=== PATIENT | female | born 1965 | race Caucasian/White ===

== ENCOUNTER 2018-05-10 19:05 | Inpatient (IN) | payer MEDICAID, OTHER ==
[~2018-05-10] VITALS: Ht 162.6 cm; Wt 73.5 kg
--- NOTE | 2018-05-10 20:45 | NUR ---
DR. DAWN AT BEDSIDE FOR MSE.
[2018-05-10] MEDS ORDERED: predniSONE 20 MG TABLET ONE (20:56)
[2018-05-10] MEDS ORDERED: ALBUTEROL SULFATE 2.5 MG/3 ML NEBU ONE (21:00)
[2018-05-10] MEDS ORDERED: IPRATROPIUM BROMIDE 0.5 MG/2.5 ML NEBU NEB ONE (21:00)
[2018-05-10] MEDS ORDERED: predniSONE 20 MG TABLET PO ONE (21:00)
[2018-05-10] MEDS ORDERED: IPRATROPIUM BROMIDE 0.5 MG/2.5 ML NEBU ONE (21:00)
[2018-05-10] MEDS ORDERED: ALBUTEROL SULFATE 2.5 MG/3 ML NEBU NEB ONE (21:00)
[2018-05-10] MEDS ORDERED: AZITHROMYCIN 250 MG TABLET PO ONE (21:45)
[2018-05-10] MEDS ORDERED: AZITHROMYCIN 250 MG TABLET ONE (21:52)
[2018-05-10] MEDS ORDERED: IV NORMAL SALINE 1000 ML BAG IV ONE (23:00)
[2018-05-10] MEDS ORDERED: CEFTRIAXONE 1 G in IV DEXTROSE 5% 50 ML IV ONE (23:00)
[2018-05-10] MEDS ORDERED: CEFTRIAXONE 1 G VIAL ONE (23:07)
[2018-05-10 23:13] LABS: BASOPHILS % (AUTO) 0.1 % (0.0-2.0); CREATININE 0.7 mg/dL (0.6-1.3); HEMATOCRIT 37.6 % (31.2-41.9); HEMOGLOBIN 12.6 g/dL (10.9-14.3); LYMPHOCYTES % (AUTO) 11.6 % (20.5-51.5); MEAN CORPUSCULAR HEMOGLOBIN 27.9 uug (24.7-32.8); MEAN CORPUSCULAR HGB CONC 33 g/dL (32.3-35.6); MEAN CORPUSCULAR VOLUME 83.4 fL (75.5-95.3); MONOCYTES # (AUTO) 0.4 K/uL (2.0-10.0); MONOCYTES % (AUTO) 4.1 % (0.0-11.0); NEUTROPHILS # (AUTO) 7.3 K/uL (1.8-8.9); NEUTROPHILS % (AUTO) 84.2 % (38.5-71.5); PLATELET COUNT (AUTO) 148 K/uL (179-408); POTASSIUM 3.6 mmol/L (3.5-5.1); RED BLOOD CELL COUNT(AUTO) 4.51 MIL/uL (3.63-4.92); WHITE BLOOD COUNT (AUTO) 8.7 K/uL (3.8-11.8)
[2018-05-10] MEDS ORDERED: MAGNESIUM HYDROXIDE 30 ML LIQUID UDC PO PRN (23:15)
[2018-05-10] MEDS ORDERED: TEMAZEPAM 15 MG CAPSULE PO PRN (23:15)
[2018-05-10] MEDS ORDERED: Z GUARD REMEDY PASTE 57 GM TUBE TOP PRN (23:15)
[2018-05-10] MEDS ORDERED: ACETAMINOPHEN 325 MG TABLET PO PRN (23:15)
[2018-05-10] MEDS ORDERED: ONDANSETRON 4 MG/2 ML VIAL IV PRN (23:15)
[2018-05-10] MEDS ORDERED: IPRATROPIUM BROMIDE 0.5 MG/2.5 ML NEBU NEB PRN (23:15)
--- NOTE | 2018-05-10 23:37 | NUR ---
Pt. admitted to [facility] , under care of RAFAL Finney Belongs List completed.
--- NOTE | 2018-05-10 23:37 | NUR ---
REPORT GIVEN TO STUART FLYNN.
[2018-05-11 00:15] VITALS: BP 107/64
--- NOTE | 2018-05-11 00:15 | NUR ---
Received patient awake, alert and oriented x 4, not in any form of distress. Patient with oxygen support at 2lpm via nasal cannula, saturating at 97%. Patient has an IV access at left antecubital vein, 20g to saline lock. Patient oriented to unit and use of call light. Bedbath rendered. Ensured safety and comfort. Bed in low position, locked, side rails up x 2, call light within reach. Will continue to monitor.
[2018-05-11] MEDS: IV NS 1000 ML 1,000 ML IV PRN ×2 (00:59→15:16)
[2018-05-11] MEDS: NICOTINE 14 MG/24HR PATCH TD SCH ×2 (00:59→08:02)
[2018-05-11 03:13] VITALS: BP 95/56
[2018-05-11 06:40] LABS: BASOPHILS % (AUTO) 0.1 % (0.0-2.0); HEMATOCRIT 34.7 % (31.2-41.9); HEMOGLOBIN 11.6 g/dL (10.9-14.3); LYMPHOCYTES # (AUTO) 0.8 K/uL (20.0-40.0); LYMPHOCYTES % (AUTO) 10.6 % (20.5-51.5); MEAN CORPUSCULAR HEMOGLOBIN 28.2 uug (24.7-32.8); MEAN CORPUSCULAR HGB CONC 34 g/dL (32.3-35.6); MEAN CORPUSCULAR VOLUME 83.9 fL (75.5-95.3); MONOCYTES # (AUTO) 0.2 K/uL (2.0-10.0); MONOCYTES % (AUTO) 3.1 % (0.0-11.0); NEUTROPHILS # (AUTO) 6.2 K/uL (1.8-8.9); NEUTROPHILS % (AUTO) 86.2 % (38.5-71.5); PLATELET COUNT (AUTO) 154 K/uL (179-408); RED BLOOD CELL COUNT(AUTO) 4.13 MIL/uL (3.63-4.92); WHITE BLOOD COUNT (AUTO) 7.2 K/uL (3.8-11.8)
[2018-05-11] MEDS: PANTOPRAZOLE SODIUM 40 MG VIAL IV SCH (06:44)
--- NOTE | 2018-05-11 06:47 | NUR ---
Patient slept well, alert and oriented x 4, not in any form of distress. Patient with oxygen support at 2lpm via nasal cannula, saturating at 97%. Patient has an IV access at left antecubital vein, 20g to ongoing IV fluid, infusing well. Still for urine collection, patient instructed, hat placed in the toilet. Ensured safety and comfort. No complaints made.
[2018-05-11 06:58] LABS: BILIRUBIN,TOTAL 0.5 mg/dL (0.2-1.0); MAGNESIUM 2.1 mg/dL (1.8-2.4); PHOSPHOROUS 4.8 mg/dL (2.5-4.9); POTASSIUM 4.3 mmol/L (3.5-5.1); TOTAL PROTEIN, SERUM 6.9 g/dL (6.4-8.2)
[2018-05-11 07:02] LABS: THYROID STIMULATING HORMONE 0.314 mIU/mL (0.358-3.740)
[2018-05-11 07:05] LABS: CREATININE 0.7 mg/dL (0.6-1.3)
[2018-05-11] MEDS ORDERED: DEXTROSE 50% 50 ML DISP.SYRIN IV PRN ×3 (07:45→22:00)
[2018-05-11] MEDS: methylPREDNISolone SOD SUCC 40 MG/ML VIAL IV SCH ×2 (08:20→16:36)
[2018-05-11] MEDS: BLOOD SUGAR DIAGNOSTIC 1 EACH STRIP VI SCH ×3 (10:43→20:20)
[2018-05-11] MEDS: IPRATROPIUM BROMIDE 0.5 MG/2.5 ML NEBU NEB SCH ×3 (10:52→19:26)
[2018-05-11] MEDS: ALBUTEROL SULFATE 2.5 MG/ 0.5 ML NEBU NEB PRN ×2 (10:52→10:53)
[2018-05-11] MEDS: INSULIN REGULAR, HUMAN 300 UNIT/3 ML VIAL SQ PRN ×3 (11:00→21:29)
[2018-05-11] MEDS: ENOXAPARIN SODIUM 40 MG/0.4 ML DISP.SYRIN SQ SCH (11:26)
[2018-05-11] MEDS: ALBUTEROL SULFATE 2.5 MG/3 ML NEBU NEB SCH ×3 (11:30→19:26)
[2018-05-11 11:33] VITALS: BP 112/66
[2018-05-11] MEDS ORDERED: INSULIN REGULAR, HUMAN 300 UNIT/3 ML VIAL SQ PRN (11:45)
[2018-05-11 13:25] LABS: *BILIRUBIN,URIN NEGATIVE (NEGATIVE); *BLOOD, URINE 3+ (NEGATIVE); *CLARITY,URINE SLIGHTLY CLOUDY (CLEAR); *COLOR,URINE PINK (YELLOW); *KETONES,URINE 1+ (NEGATIVE); LEUKOCYTE ESTERASE ,URINE NEGATIVE (NEGATIVE); NITRITE, URINE NEGATIVE (NEGATIVE); UGLUCOSE 2+ (NEGATIVE)
[2018-05-11 13:55] LABS: BACTERIA,URINE FEW /HPF (NONE SEEN); RBC,URINE 80-100 /HPF (0-3); SQUAMOUS EPITHELIAL CELL,UR FEW /HPF (NONE SEEN)
[2018-05-11 16:20] VITALS: BP 105/59
[2018-05-11] MEDS: GUAIFENESIN SUGAR FREE 100 MG/5 ML UDC PO PRN (16:20)
[2018-05-11] MEDS ORDERED: BLOOD SUGAR DIAGNOSTIC 1 EACH STRIP VI SCH (16:30)
[2018-05-11 18:18] LABS: BASOPHILS % (AUTO) 0.3 % (0.0-2.0); HEMOGLOBIN 11.5 g/dL (10.9-14.3); LYMPHOCYTES # (AUTO) 0.9 K/uL (20.0-40.0); LYMPHOCYTES % (AUTO) 11.6 % (20.5-51.5); MEAN CORPUSCULAR HEMOGLOBIN 27.8 uug (24.7-32.8); MEAN CORPUSCULAR HGB CONC 33 g/dL (32.3-35.6); MEAN CORPUSCULAR VOLUME 84.5 fL (75.5-95.3); MONOCYTES # (AUTO) 0.3 K/uL (2.0-10.0); MONOCYTES % (AUTO) 4.3 % (0.0-11.0); NEUTROPHILS # (AUTO) 6.7 K/uL (1.8-8.9); NEUTROPHILS % (AUTO) 83.8 % (38.5-71.5); PLATELET COUNT (AUTO) 167 K/uL (179-408); RED BLOOD CELL COUNT(AUTO) 4.14 MIL/uL (3.63-4.92)
[2018-05-11 19:16] VITALS: BP 109/67
[2018-05-11] MEDS: AZITHROMYCIN 250 MG TABLET PO SCH (20:17)
--- NOTE | 2018-05-11 20:22 | NUR ---
nsg: pt acu check is 427mg/Dl. refused insulin. refused to be rechecked again. wants recheck in 1 hr.
[2018-05-11] MEDS: CEFEPIME HCL 1 G in IV DEXTROSE 5% 50 ML IV SCH (20:55)
[2018-05-11] MEDS ORDERED: CEFTRIAXONE 1 G in IV DEXTROSE 5% 50 ML IV SCH (21:00)
--- NOTE | 2018-05-11 21:30 | NUR ---
NSG: rechecked glucose, 429mg/DL. gave humalog insulin 10 units. ordered random glucose level. also l/m with Dr. Aguilar. awaiting for further orders.
[2018-05-11] MEDS ORDERED: IV NORMAL SALINE 500 ML IV ONE (22:00)
--- NOTE | 2018-05-11 22:00 | NUR ---
nsg: random glucose level is 443. received order from Dr. Aguilar for ns 500ml bolus and changed insulin sliding scale to moderate.
[2018-05-12] MEDS: IV NS 1000 ML 1,000 ML IV PRN ×2 (00:40→16:33)
[2018-05-12 03:19] VITALS: BP 110/70
--- NOTE | 2018-05-12 05:28 | NUR ---
nsg: all needs attended. no acute distress noted. v/s stable. cont to monitor.
[2018-05-12] MEDS: PANTOPRAZOLE SODIUM 40 MG VIAL IV SCH (06:36)
[2018-05-12] MEDS: BLOOD SUGAR DIAGNOSTIC 1 EACH STRIP VI SCH ×5 (06:37→21:25)
--- NOTE | 2018-05-12 06:37 | NUR ---
nsg: pt refused acu check. upset about getting checked achs. also, pt very angry, stating she's not diabetic. pt refused to be educated concerning her diabetes.
[2018-05-12 06:51] LABS: BASOPHILS % (AUTO) 0.1 % (0.0-2.0); HEMATOCRIT 32.5 % (31.2-41.9); HEMOGLOBIN 10.8 g/dL (10.9-14.3); LYMPHOCYTES # (AUTO) 1.7 K/uL (20.0-40.0); LYMPHOCYTES % (AUTO) 15.9 % (20.5-51.5); MEAN CORPUSCULAR HEMOGLOBIN 27.9 uug (24.7-32.8); MEAN CORPUSCULAR HGB CONC 33 g/dL (32.3-35.6); MEAN CORPUSCULAR VOLUME 84.2 fL (75.5-95.3); MONOCYTES # (AUTO) 0.9 K/uL (2.0-10.0); MONOCYTES % (AUTO) 8.5 % (0.0-11.0); NEUTROPHILS # (AUTO) 7.9 K/uL (1.8-8.9); NEUTROPHILS % (AUTO) 75.5 % (38.5-71.5); PLATELET COUNT (AUTO) 203 K/uL (179-408); RED BLOOD CELL COUNT(AUTO) 3.86 MIL/uL (3.63-4.92); WHITE BLOOD COUNT (AUTO) 10.4 K/uL (3.8-11.8)
[2018-05-12 06:57] LABS: CREATININE 0.7 mg/dL (0.6-1.3); POTASSIUM 4.3 mmol/L (3.5-5.1)
[2018-05-12 07:21] LABS: BAND % (MANUAL) 4 % (0-10); LYMPHOCYTES % (MANUAL) 19 % (20-40); MONOCYTES % (MANUAL) 3 % (2-10); NEUTROPHILS % (MANUAL) 73 % (42-75)
[2018-05-12] MEDS: IPRATROPIUM BROMIDE 0.5 MG/2.5 ML NEBU NEB SCH ×4 (07:30→19:49)
[2018-05-12] MEDS: ALBUTEROL SULFATE 2.5 MG/3 ML NEBU NEB SCH ×4 (07:30→19:49)
[2018-05-12] MEDS: INSULIN REGULAR, HUMAN 300 UNIT/3 ML VIAL SQ PRN ×3 (08:53→17:10)
[2018-05-12] MEDS: methylPREDNISolone SOD SUCC 40 MG/ML VIAL IV SCH ×2 (08:56→17:04)
[2018-05-12 09:51] LABS: ABG BASE EXCESS 1.5 mmol/L; ABG HCO3 26.3 mmol/L; ABG PCO2 42.3 mmHg (35.0-45.0); ABG PH 7.412 (7.350-7.450); ABG PO2 65.4 mmHg (75.0-100.0); ABG SITE RIGHT RADIAL; ABG TOTAL HEMOGLOBIN 11.5 G/dL (12.0-16.0); COHb 1.2 % (0.5-1.5); O2Hb 91.5 % (94.0-97.0); VENT MODE ROOM AIR
[2018-05-12] MEDS: NICOTINE 14 MG/24HR PATCH TD SCH (09:57)
[2018-05-12] MEDS: CEFEPIME HCL 1 G in IV DEXTROSE 5% 50 ML IV SCH ×2 (09:57→21:11)
[2018-05-12] MEDS: ENOXAPARIN SODIUM 40 MG/0.4 ML DISP.SYRIN SQ SCH (10:04)
[2018-05-12 11:20] VITALS: BP 109/52
[2018-05-12] MEDS: HYDROMORPHONE 1 MG/1 ML DISP.SYRIN IV PRN ×3 (13:03→21:11)
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
[2018-05-12 15:10] VITALS: BP 107/65
[2018-05-12] MEDS: GUAIFENESIN SUGAR FREE 100 MG/5 ML UDC PO PRN (17:04)
[2018-05-12] MEDS ORDERED: CLONIDINE TTS 2 PATCH TD SCH (18:30)
[2018-05-12] MEDS: AZITHROMYCIN 250 MG TABLET PO SCH (19:35)
[2018-05-12 20:00] VITALS: BP 111/63
[2018-05-12] MEDS: CULTURELLE CAPSULE PO SCH (21:11)
[2018-05-13] MEDS: HYDROMORPHONE 1 MG/1 ML DISP.SYRIN IV PRN ×4 (00:59→18:10)
[2018-05-13] MEDS: IV NS 1000 ML 1,000 ML IV PRN ×3 (01:09→23:56)
[2018-05-13 04:00] VITALS: BP 126/80
--- NOTE | 2018-05-13 06:00 | NUR ---
No significant change, assisted with all needs. Medicated for pain PRN. Vital signs WNL.
[2018-05-13 06:08] LABS: BASOPHILS % (AUTO) 0.1 % (0.0-2.0); HEMATOCRIT 32.3 % (31.2-41.9); HEMOGLOBIN 10.7 g/dL (10.9-14.3); LYMPHOCYTES # (AUTO) 1.7 K/uL (20.0-40.0); LYMPHOCYTES % (AUTO) 20.8 % (20.5-51.5); MEAN CORPUSCULAR HEMOGLOBIN 28.1 uug (24.7-32.8); MEAN CORPUSCULAR HGB CONC 33 g/dL (32.3-35.6); MEAN CORPUSCULAR VOLUME 84.5 fL (75.5-95.3); MONOCYTES # (AUTO) 0.4 K/uL (2.0-10.0); MONOCYTES % (AUTO) 4.2 % (0.0-11.0); NEUTROPHILS # (AUTO) 6.2 K/uL (1.8-8.9); NEUTROPHILS % (AUTO) 74.9 % (38.5-71.5); PLATELET COUNT (AUTO) 271 K/uL (179-408); RED BLOOD CELL COUNT(AUTO) 3.82 MIL/uL (3.63-4.92); WHITE BLOOD COUNT (AUTO) 8.3 K/uL (3.8-11.8)
[2018-05-13] MEDS: PANTOPRAZOLE SODIUM 40 MG TABLET.DR PO SCH (06:41)
[2018-05-13] MEDS: BLOOD SUGAR DIAGNOSTIC 1 EACH STRIP VI SCH ×4 (06:42→20:16)
[2018-05-13] MEDS: IPRATROPIUM BROMIDE 0.5 MG/2.5 ML NEBU NEB SCH ×4 (07:38→19:04)
[2018-05-13] MEDS: ALBUTEROL SULFATE 2.5 MG/3 ML NEBU NEB SCH ×4 (07:39→19:05)
[2018-05-13] MEDS: methylPREDNISolone SOD SUCC 40 MG/ML VIAL IV SCH ×2 (08:21→17:42)
[2018-05-13] MEDS: NICOTINE 14 MG/24HR PATCH TD SCH (08:22)
[2018-05-13] MEDS: CULTURELLE CAPSULE PO SCH ×2 (08:23→20:12)
[2018-05-13] MEDS: INSULIN REGULAR, HUMAN 300 UNIT/3 ML VIAL SQ PRN ×4 (08:25→20:17)
[2018-05-13] MEDS: ENOXAPARIN SODIUM 40 MG/0.4 ML DISP.SYRIN SQ SCH (08:26)
[2018-05-13] MEDS: CEFEPIME HCL 1 G in IV DEXTROSE 5% 50 ML IV SCH ×2 (08:39→20:12)
[2018-05-13 09:25] LABS: CREATININE 0.8 mg/dL (0.6-1.3); POTASSIUM 4.2 mmol/L (3.5-5.1)
[2018-05-13 11:10] VITALS: BP 105/69
[2018-05-13] MEDS: GUAIFENESIN SUGAR FREE 100 MG/5 ML UDC PO PRN (13:40)
[2018-05-13 15:01] LABS: *AMPHETAMINE, URINE NEGATIVE (NEGATIVE); *BARBITURATE, URINE NEGATIVE (NEGATIVE); *CANNABINOID, URINE POSITIVE (NEGATIVE); *COCCAINE, URINE NEGATIVE (NEGATIVE); *OPIATE, URINE POSITIVE (NEGATIVE); *PHENCYCLIDINE SCREEN,URINE NEGATIVE (NEGATIVE)
[2018-05-13 15:20] VITALS: BP 144/89
[2018-05-13] MEDS: AZITHROMYCIN 250 MG TABLET PO SCH (18:10)
--- NOTE | 2018-05-13 19:47 | NUR ---
Received patient awake, not in any form of distress. Patient with oxygen support at 2lpm via nasal cannula, saturating at 97%. Patient has an IV access at left hand vein, 22g to ongoing IV fluid, infusing well. Bed in low position, rhona, side rails up x 2, call light within reach.Noise and lights subdued.
[2018-05-13 19:56] VITALS: BP 128/82
[2018-05-14] MEDS: HYDROMORPHONE 1 MG/1 ML DISP.SYRIN IV PRN ×2 (00:12→19:45)
[2018-05-14 04:37] VITALS: BP 133/70
--- NOTE | 2018-05-14 05:39 | NUR ---
Patient slept well, not in any form of distress. Patient ambulatory. Patient with oxygen support at 2lpm via nasal cannula, saturating at 97-98%. Patient has an IV access at left hand vein, 22g to ongoing IV fluid, infusing well. Ensured safety and comfort. With pain complaints, prn pain medication given.
[2018-05-14] MEDS: BLOOD SUGAR DIAGNOSTIC 1 EACH STRIP VI SCH ×4 (06:31→21:08)
[2018-05-14] MEDS: PANTOPRAZOLE SODIUM 40 MG TABLET.DR PO SCH (06:31)
[2018-05-14] MEDS: IPRATROPIUM BROMIDE 0.5 MG/2.5 ML NEBU NEB SCH ×4 (07:10→19:54)
[2018-05-14] MEDS: ALBUTEROL SULFATE 2.5 MG/3 ML NEBU NEB SCH ×4 (07:10→19:53)
[2018-05-14 07:56] LABS: BASOPHILS # (AUTO) 0.1 K/uL (0.0-8.0); BASOPHILS % (AUTO) 0.7 % (0.0-2.0); EOSINOPHILS % (AUTO) 0.2 % (0.0-7.0); HEMATOCRIT 31.6 % (31.2-41.9); HEMOGLOBIN 10.6 g/dL (10.9-14.3); LYMPHOCYTES % (AUTO) 24.6 % (20.5-51.5); MEAN CORPUSCULAR HGB CONC 34 g/dL (32.3-35.6); MEAN CORPUSCULAR VOLUME 83.7 fL (75.5-95.3); MONOCYTES # (AUTO) 0.5 K/uL (2.0-10.0); MONOCYTES % (AUTO) 6.3 % (0.0-11.0); NEUTROPHILS # (AUTO) 5.4 K/uL (1.8-8.9); NEUTROPHILS % (AUTO) 68.2 % (38.5-71.5); PLATELET COUNT (AUTO) 312 K/uL (179-408); RED BLOOD CELL COUNT(AUTO) 3.78 MIL/uL (3.63-4.92)
[2018-05-14 08:07] LABS: CREATININE 0.6 mg/dL (0.6-1.3)
[2018-05-14 08:24] LABS: BAND % (MANUAL) 9 % (0-10); LYMPHOCYTES % (MANUAL) 25 % (20-40); METAMYELOCYTES % 3 % (0-1); MONOCYTES % (MANUAL) 7 % (2-10); MYELOCYTES % 3 % (0-0); NEUTROPHILS % (MANUAL) 53 % (42-75)
[2018-05-14] MEDS: CEFEPIME HCL 1 G in IV DEXTROSE 5% 50 ML IV SCH ×2 (08:58→21:13)
[2018-05-14] MEDS: methylPREDNISolone SOD SUCC 40 MG/ML VIAL IV SCH ×2 (08:58→17:26)
[2018-05-14] MEDS: NICOTINE 14 MG/24HR PATCH TD SCH (09:00)
[2018-05-14] MEDS: CULTURELLE CAPSULE PO SCH ×2 (09:01→21:08)
[2018-05-14] MEDS: HYDROCODONE/APAP 5-325MG TABLET PO PRN ×2 (09:01→14:54)
[2018-05-14] MEDS: ENOXAPARIN SODIUM 40 MG/0.4 ML DISP.SYRIN SQ SCH (09:02)
[2018-05-14] MEDS: INSULIN REGULAR, HUMAN 300 UNIT/3 ML VIAL SQ PRN ×3 (10:31→16:47)
[2018-05-14 11:21] VITALS: BP 147/83
[2018-05-14 14:18] LABS: *BILIRUBIN,URIN NEGATIVE (NEGATIVE); *BLOOD, URINE 3+ (NEGATIVE); *CLARITY,URINE SLIGHTLY CLOUDY (CLEAR); *COLOR,URINE DARK YELLOW (YELLOW); *KETONES,URINE TRACE (NEGATIVE); *UROBILINOGEN,URINE 0.2 E.U./dl (NORMAL); LEUKOCYTE ESTERASE ,URINE NEGATIVE (NEGATIVE); NITRITE, URINE NEGATIVE (NEGATIVE); UGLUCOSE 2+ (NEGATIVE)
[2018-05-14 14:30] LABS: RBC,URINE 50-80 /HPF (0-3)
[2018-05-14 14:31] LABS: MUCUS,URINE FEW /LPF (0-FEW); SQUAMOUS EPITHELIAL CELL,UR FEW /HPF (NONE SEEN)
[2018-05-14 14:32] LABS: BACTERIA,URINE NONE SEEN /HPF (NONE SEEN)
[2018-05-14 16:00] VITALS: BP 150/91
[2018-05-14] MEDS: AZITHROMYCIN 250 MG TABLET PO SCH (18:38)
--- NOTE | 2018-05-14 19:25 | NUR ---
Received patient awake, not in any form of distress. Patient with oxygen support at 2lpm via nasal cannula, saturating at 96-98%. Patient has an IV access at left hand vein, 22g to ongoing IV fluid, infusing well. Complaining of generalized pain, will give prn pain medication. Bed in low position, locked, side rails up x 2, call light within reach. Noise and lights subdued.
[2018-05-14 20:05] VITALS: BP 146/81
[2018-05-14] MEDS: INSULIN REGULAR, HUMAN 300 UNITS/3 ML VIAL SQ PRN (21:11)
[2018-05-14] MEDS: IV NS 1000 ML 1,000 ML IV PRN (21:16)
[2018-05-14] MEDS: GUAIFENESIN SUGAR FREE 100 MG/5 ML UDC PO PRN (23:32)
[2018-05-15 04:45] VITALS: BP 139/80
--- NOTE | 2018-05-15 05:50 | NUR ---
Patient slept well, no distress noted. Patient ambulatory. Patient tolerating oxygen support at 2lpm via nasal cannula. Patient has an IV access at left hand vein, 22g to ongoing IV fluid, infusing well. Ensured safety and comfort. With pain complaints, prn pain medication given.Attended all needs.
[2018-05-15] MEDS: PANTOPRAZOLE SODIUM 40 MG TABLET.DR PO SCH (06:13)
[2018-05-15] MEDS: IV NS 1000 ML 1,000 ML IV PRN ×2 (06:14→16:42)
[2018-05-15] MEDS: HYDROCODONE/APAP 5-325MG TABLET PO PRN ×3 (06:19→16:29)
[2018-05-15] MEDS: BLOOD SUGAR DIAGNOSTIC 1 EACH STRIP VI SCH ×4 (06:42→20:12)
[2018-05-15 06:44] LABS: BASOPHILS # (AUTO) 0.1 K/uL (0.0-8.0); BASOPHILS % (AUTO) 0.6 % (0.0-2.0); EOSINOPHILS % (AUTO) 0.2 % (0.0-7.0); HEMATOCRIT 33.4 % (31.2-41.9); LYMPHOCYTES # (AUTO) 2.4 K/uL (20.0-40.0); LYMPHOCYTES % (AUTO) 22.1 % (20.5-51.5); MEAN CORPUSCULAR HEMOGLOBIN 27.8 uug (24.7-32.8); MEAN CORPUSCULAR HGB CONC 33 g/dL (32.3-35.6); MEAN CORPUSCULAR VOLUME 84.3 fL (75.5-95.3); MONOCYTES # (AUTO) 0.6 K/uL (2.0-10.0); MONOCYTES % (AUTO) 5.9 % (0.0-11.0); NEUTROPHILS # (AUTO) 7.6 K/uL (1.8-8.9); NEUTROPHILS % (AUTO) 71.2 % (38.5-71.5); PLATELET COUNT (AUTO) 344 K/uL (179-408); RED BLOOD CELL COUNT(AUTO) 3.96 MIL/uL (3.63-4.92)
[2018-05-15 06:52] LABS: CREATININE 0.6 mg/dL (0.6-1.3); POTASSIUM 3.9 mmol/L (3.5-5.1)
[2018-05-15] MEDS: ALBUTEROL SULFATE 2.5 MG/3 ML NEBU NEB SCH ×4 (07:12→19:26)
[2018-05-15] MEDS: IPRATROPIUM BROMIDE 0.5 MG/2.5 ML NEBU NEB SCH ×4 (07:13→19:26)
[2018-05-15 07:27] LABS: WHITE BLOOD COUNT (AUTO) 10.7 K/uL (3.8-11.8)
--- NOTE | 2018-05-15 08:00 | NUR ---
Received patient awake, alert and oriented. Patient on oxygen support at 2L nasal cannula. No signs of acute distress at this time. IV access patent. Safety and comfort measures implemented. Bed on lowest and locked position with side rails up x2. Call light within reach. Will continue to monitor throughout shift.
[2018-05-15] MEDS: methylPREDNISolone SOD SUCC 40 MG/ML VIAL IV SCH ×2 (08:08→16:37)
[2018-05-15] MEDS: CULTURELLE CAPSULE PO SCH ×2 (08:08→20:28)
[2018-05-15] MEDS: NICOTINE 14 MG/24HR PATCH TD SCH (08:09)
[2018-05-15] MEDS: ENOXAPARIN SODIUM 40 MG/0.4 ML DISP.SYRIN SQ SCH (08:11)
[2018-05-15] MEDS: INSULIN REGULAR, HUMAN 300 UNIT/3 ML VIAL SQ PRN ×3 (08:16→16:04)
[2018-05-15 10:05] LABS: BAND % (MANUAL) 1 % (0-10); LYMPHOCYTES % (MANUAL) 28 % (20-40); METAMYELOCYTES % 5 % (0-1); MONOCYTES % (MANUAL) 4 % (2-10); MYELOCYTES % 9 % (0-0); NEUTROPHILS % (MANUAL) 53 % (42-75)
[2018-05-15] MEDS: CEFEPIME HCL 1 G in IV DEXTROSE 5% 50 ML IV SCH ×2 (10:19→20:12)
[2018-05-15 11:01] VITALS: BP 122/83
[2018-05-15 11:04] VITALS: BP 149/93
[2018-05-15 15:02] VITALS: BP 131/76
--- NOTE | 2018-05-15 16:30 | NUR ---
Handed patient to KRYS Figueroa. Report given.
[2018-05-15 20:00] VITALS: BP 133/75
[2018-05-15] MEDS: INSULIN REGULAR, HUMAN 300 UNITS/3 ML VIAL SQ PRN (20:16)
[2018-05-15] MEDS: HYDROMORPHONE 1 MG/1 ML DISP.SYRIN IV PRN (20:31)
[2018-05-15] MEDS ORDERED: LEVOFLOXACIN 500 MG TABLET PO SCH (22:30)
[2018-05-16] MEDS: IV NS 1000 ML 1,000 ML IV PRN (00:48)
[2018-05-16] MEDS: ALBUTEROL SULFATE 2.5 MG/ 0.5 ML NEBU NEB PRN (02:41)
[2018-05-16 04:49] VITALS: BP 137/78
[2018-05-16] MEDS: PANTOPRAZOLE SODIUM 40 MG TABLET.DR PO SCH (06:06)
[2018-05-16] MEDS: BLOOD SUGAR DIAGNOSTIC 1 EACH STRIP VI SCH ×3 (06:07→17:24)
[2018-05-16 06:28] LABS: BASOPHILS % (AUTO) 0.2 % (0.0-2.0); EOSINOPHILS % (AUTO) 0.2 % (0.0-7.0); HEMATOCRIT 31.8 % (31.2-41.9); HEMOGLOBIN 10.7 g/dL (10.9-14.3); LYMPHOCYTES % (AUTO) 19.4 % (20.5-51.5); MEAN CORPUSCULAR HEMOGLOBIN 28.2 uug (24.7-32.8); MEAN CORPUSCULAR HGB CONC 34 g/dL (32.3-35.6); MEAN CORPUSCULAR VOLUME 83.9 fL (75.5-95.3); MONOCYTES # (AUTO) 0.4 K/uL (2.0-10.0); MONOCYTES % (AUTO) 4.3 % (0.0-11.0); NEUTROPHILS # (AUTO) 7.7 K/uL (1.8-8.9); NEUTROPHILS % (AUTO) 75.9 % (38.5-71.5); PLATELET COUNT (AUTO) 338 K/uL (179-408); RED BLOOD CELL COUNT(AUTO) 3.79 MIL/uL (3.63-4.92); WHITE BLOOD COUNT (AUTO) 10.1 K/uL (3.8-11.8)
[2018-05-16 06:42] LABS: CREATININE 0.6 mg/dL (0.6-1.3); POTASSIUM 3.8 mmol/L (3.5-5.1)
--- NOTE | 2018-05-16 06:56 | NUR ---
PATIENT ASLEEP BUT AROUSABLE, NO SOB NO CHEST PAIN. PATIENT REFUSED OXYGEN, WHEN OXYGEN SAT CHECK WNL, CONT ON HHNT FOR PNA. CONTINENT OF BOWEL AND BLADDER, CONT PAIN MANAGEMENT. CONT TO MONITOR.
[2018-05-16 07:09] LABS: BAND % (MANUAL) 2 % (0-10); EOSINOPHILS % (MANUAL) 1 % (0-8); LYMPHOCYTES % (MANUAL) 17 % (20-40); METAMYELOCYTES % 3 % (0-1); MONOCYTES % (MANUAL) 14 % (2-10); MYELOCYTES % 3 % (0-0); NEUTROPHILS % (MANUAL) 60 % (42-75)
[2018-05-16] MEDS: ALBUTEROL SULFATE 2.5 MG/3 ML NEBU NEB SCH ×3 (07:21→15:00)
[2018-05-16] MEDS: IPRATROPIUM BROMIDE 0.5 MG/2.5 ML NEBU NEB SCH ×3 (07:21→15:00)
--- NOTE | 2018-05-16 08:00 | NUR ---
Patient awake, alert and oriented x4. Resting comfortably in bed. No complaints of pain at this time. Patient with oxygen support. Ensured safety and comfort. Call light within reach. Bed in lowest and locked position. All needs met, no complaints made. Will continue to monitor throughout shift.
[2018-05-16] MEDS: ENOXAPARIN SODIUM 40 MG/0.4 ML DISP.SYRIN SQ SCH (08:31)
[2018-05-16] MEDS: INSULIN REGULAR, HUMAN 300 UNIT/3 ML VIAL SQ PRN ×3 (08:33→17:19)
[2018-05-16] MEDS: NICOTINE 14 MG/24HR PATCH TD SCH (08:34)
[2018-05-16] MEDS: CULTURELLE CAPSULE PO SCH (08:34)
[2018-05-16] MEDS: methylPREDNISolone SOD SUCC 40 MG/ML VIAL IV SCH (08:34)
[2018-05-16 11:26] VITALS: BP 149/89
[2018-05-16] MEDS: METFORMIN HCL 500 MG TABLET PO SCH ×2 (11:28→17:24)
[2018-05-16 15:43] VITALS: BP 151/91
[2018-05-16] MEDS ORDERED: METF-442 PO (16:41)
[2018-05-16] MEDS ORDERED: LEVO500T2 PO (16:41)
[2018-05-16] MEDS ORDERED: ALBU8.5H8 INH (16:59)
[2018-05-16] MEDS ORDERED: predniSONE 20 MG TABLET PO SCH (18:00)
--- NOTE | 2018-05-16 18:11 | NUR ---
VITALS WNL. NO SIGNS OF SOB UPON DISCHARGE. NO COMPLAINTS OF PAIN. DISCHARGE INSTRUCTIONS GIVEN. PATIENT VERBALIZES UNDERSTANDING. IV D/C'D. ID BAND REMOVED. PATIENT SAFELY AMBULATES. RESOURCE PAPERS GIVEN. HOMELESS PATIENT WAIVER FORM SIGNED. BELONGINGS, VALUABLES RETURNED TO PATIENT. UPDATED PICTURE TAKEN AND POSTED IN CHART.
--- NOTE | 2018-05-16 18:30 | NUR ---
Offered pt to have some pant's, shoes, for her pt refused. Pt is in no acute distress.
== END 2018-05-16 18:50 | disposition home or self-care (01) | DRG 139 ==
LOC: ER 19:05 → TELE3 23:59 → EDBD 23:59 → MEDSURG3 05-11 14:02
PROVIDERS: ADMIT Nurse Practitioner Acute Care; ATTEND Nurse Practitioner Acute Care
DX: J15.9 Unspecified bacterial pneumonia (principal); E43 Unspecified severe protein-calorie malnutrition; G92 Toxic encephalopathy; D69.6 Thrombocytopenia, unspecified; E11.65 Type 2 diabetes mellitus with hyperglycemia; E87.1 Hypo-osmolality and hyponatremia; E86.0 Dehydration; J43.9 Emphysema, unspecified; J44.0 Chronic obstructive pulmonary disease with (acute) lower respiratory infection; Z59.0 Homelessness; F10.20 Alcohol dependence, uncomplicated; Y90.9 Presence of alcohol in blood, level not specified; F19.20 Other psychoactive substance dependence, uncomplicated; E66.9 Obesity, unspecified; Z68.27 Body mass index [BMI] 27.0-27.9, adult; Z71.3 Dietary counseling and surveillance; Z91.19 Patient's noncompliance with other medical treatment and regimen; N39.0 Urinary tract infection, site not specified; R80.9 Proteinuria, unspecified; I10 Essential (primary) hypertension; F17.210 Nicotine dependence, cigarettes, uncomplicated; E05.90 Thyrotoxicosis, unspecified without thyrotoxic crisis or storm; D64.9 Anemia, unspecified; R09.02 Hypoxemia; Z87.820 Personal history of traumatic brain injury
CPT/HCPCS: 36415; 36600; 70030-TC; 71045; 71250; 80307; 82785; 83735; 84100; 84443; 85025; 87070; 87400; 93005; 94640; 97116; 97530; A4663; C9113; G0378; J0692; J0696; J1170; J1650; J1815; J2920; J3590; J7030; J7060; J7512; Q0144

== ENCOUNTER 2020-12-06 17:06 | Emergency (ER) | payer OTHER ==
[~2020-12-06] VITALS: Ht 167.6 cm; Wt 79.4 kg
[~2020-12-06 17:06] MED LIST: ALBU8.5H8 INH; LEVO500T2 PO; METF-442 PO
--- NOTE | 2020-12-06 17:26 | NUR ---
MD Gordon at bedside for assessment
--- NOTE | 2020-12-06 17:38 | NUR ---
No health and social care teacher available at this time
[2020-12-06] MEDS ORDERED: IBUPROFEN 400 MG TABLET PO ONE (17:45)
[2020-12-06] MEDS ORDERED: IBUPROFEN 400 MG TABLET ONE (17:52)
--- NOTE | 2020-12-06 17:57 | NUR ---
Patient given written and verbal discharge instructions. Patient given food, tap card, and [facility] information. Patient verbalizes understanding of instructions. Patient is ambulatory with steady gait. Refuses offer of [facility] placement, states she will return prior [facility]. Patient given list of available shelters in surrounding area.
[2020-12-06 18:02] VITALS: BP 150/90
== END 2020-12-06 17:55 | disposition home or self-care (01) ==
LOC: ER 17:12
DX: R25.2 Cramp and spasm (principal); Z59.00 Homelessness unspecified; F17.210 Nicotine dependence, cigarettes, uncomplicated; J45.909 Unspecified asthma, uncomplicated; J98.4 Other disorders of lung
CPT/HCPCS: A4663